=== PATIENT | female | born 1940 | race Two or more races ===

== ENCOUNTER 2017-03-03 07:42 | Outpatient (CLI) | payer OTHER ==
[~2017-03-03] VITALS: Ht 149.9 cm; Wt 59.0 kg
[~2017-03-03 07:42] MED LIST: OMEPRAZOLE20 MG PO; STOOL SOFTENER50 MG PO; SYNTHROID112 MCG PO
== END 2017-03-03 08:00 | disposition home or self-care (01) ==
LOC: OFIC 805 07:42
DX: K21.0 Gastro-esophageal reflux disease with esophagitis (principal)

== ENCOUNTER 2017-03-24 09:01 | Outpatient (CLI) | payer OTHER | END 2017-03-24 09:06 | disposition home or self-care (01) | LOC: SONOGRAMA 09:01 | DX: R12 Heartburn (principal); K30 Functional dyspepsia; K57.30 Diverticulosis of large intestine without perforation or abscess without bleeding; R14.2 Eructation; E03.8 Other specified hypothyroidism ==

== ENCOUNTER 2017-05-24 07:23 | Outpatient (CLI) | payer OTHER | END 2017-05-24 07:37 | disposition home or self-care (01) | LOC: MAMO-SONO 07:23 | DX: Z12.31 Encounter for screening mammogram for malignant neoplasm of breast (principal); Z87.898 Personal history of other specified conditions; N60.11 Diffuse cystic mastopathy of right breast; N60.12 Diffuse cystic mastopathy of left breast ==

== ENCOUNTER → 2017-06-07 | Outpatient (CLI) | payer OTHER | END | disposition home or self-care (01) | LOC: NUCLEAR 06-02 11:00 | DX: M81.0 Age-related osteoporosis without current pathological fracture (principal) ==

== ENCOUNTER 2017-12-29 07:45 | Outpatient (CLI) | payer OTHER | END 2017-12-29 07:51 | disposition home or self-care (01) | LOC: SONOGRAMA 07:45 | DX: E04.8 Other specified nontoxic goiter (principal) ==

== ENCOUNTER 2018-01-25 07:44 | Outpatient (CLI) | payer OTHER | END 2018-01-25 07:47 | disposition home or self-care (01) | LOC: SONOGRAMA 07:44 | DX: E04.1 Nontoxic single thyroid nodule (principal) ==

== ENCOUNTER 2018-01-30 08:03 | Outpatient (CLI) | payer OTHER | END 2018-01-30 08:06 | disposition home or self-care (01) | LOC: MAMO-SONO 08:03 | DX: Z12.31 Encounter for screening mammogram for malignant neoplasm of breast (principal); Z87.898 Personal history of other specified conditions; N60.01 Solitary cyst of right breast; N60.02 Solitary cyst of left breast ==

== ENCOUNTER 2018-03-26 12:12 | Outpatient (CLI) | payer OTHER ==
[~2018-03-26] VITALS: Ht 149.9 cm; Wt 57.6 kg
== END 2018-03-26 12:30 | disposition home or self-care (01) ==
LOC: OFIC 805 12:12
DX: J34.3 Hypertrophy of nasal turbinates (principal); J34.2 Deviated nasal septum

== ENCOUNTER 2018-04-26 08:31 | Outpatient (CLI) | payer OTHER | END 2018-04-26 08:44 | disposition home or self-care (01) | LOC: RAD 501 08:31 | DX: M25.511 Pain in right shoulder (principal) ==

== ENCOUNTER 2018-04-30 08:45 | Outpatient (CLI) | payer OTHER | END 2018-04-30 08:54 | disposition home or self-care (01) | LOC: SONOGRAMA 08:45 | DX: M25.511 Pain in right shoulder (principal) ==

== ENCOUNTER → 2018-05-14 | Emergency (ER) | payer OTHER ==
[~2018-05-14] VITALS: Ht 149.9 cm; Wt 59.0 kg
== END | disposition left against medical advice (07) ==
LOC: ER 00:09
DX: Z53.20 Procedure and treatment not carried out because of patient's decision for unspecified reasons (principal)

== ENCOUNTER 2018-11-06 17:45 | Emergency (ER) | payer OTHER ==
[~2018-11-06] VITALS: Ht 149.9 cm; Wt 59.0 kg
[2018-11-06] MEDS ORDERED: DEXILANT60 MG PO (17:52)
== END 2018-11-06 23:26 | disposition home or self-care (01) ==
LOC: ER 17:45
DX: K56.699 Other intestinal obstruction unspecified as to partial versus complete obstruction (principal); K80.80 Other cholelithiasis without obstruction; R10.31 Right lower quadrant pain

== ENCOUNTER 2019-02-18 10:11 | Outpatient (CLI) | payer OTHER ==
[~2019-02-18 10:11] MED LIST changes: +DEXILANT60 MG PO
== END 2019-02-21 15:16 | disposition home or self-care (01) ==
LOC: RAD 10:11
DX: R10.84 Generalized abdominal pain (principal)

== ENCOUNTER 2019-04-23 09:07 | Outpatient (CLI) | payer OTHER ==
[~2019-04-23] VITALS: Ht 121.9 cm; Wt 59.0 kg
== END 2019-04-23 11:23 | disposition home or self-care (01) ==
LOC: OFIC 805 09:07
DX: J34.2 Deviated nasal septum (principal); K21.0 Gastro-esophageal reflux disease with esophagitis; R07.0 Pain in throat

== ENCOUNTER 2019-04-28 15:41 | Emergency (ER) | payer OTHER ==
[~2019-04-28] VITALS: Ht 157.5 cm; Wt 62.6 kg
== END 2019-04-28 20:19 | disposition home or self-care (01) ==
LOC: ER 15:41
DX: S40.012A Contusion of left shoulder, initial encounter (principal); S50.02XA Contusion of left elbow, initial encounter; W01.198A Fall on same level from slipping, tripping and stumbling with subsequent striking against other object, initial encounter; Y93.01 Activity, walking, marching and hiking; Y92.59 Other trade areas as the place of occurrence of the external cause; Y99.8 Other external cause status

== ENCOUNTER 2019-04-30 08:03 | Outpatient (CLI) | payer OTHER | END 2019-04-30 08:15 | disposition home or self-care (01) | LOC: RAD 08:03 | DX: J44.9 Chronic obstructive pulmonary disease, unspecified (principal) ==

== ENCOUNTER 2020-12-17 13:04 | Outpatient (CLI) | payer OTHER | END 2020-12-17 13:13 | disposition home or self-care (01) | LOC: NUCLEAR 13:04 | PROVIDERS: ATTEND Obstetrics & Gynecology | DX: M81.0 Age-related osteoporosis without current pathological fracture (principal) ==

== ENCOUNTER 2020-12-22 08:29 | Outpatient (CLI) | payer OTHER | END 2020-12-22 08:42 | disposition home or self-care (01) | LOC: MAMO-SONO 08:29 | PROVIDERS: ATTEND Obstetrics & Gynecology | DX: N60.11 Diffuse cystic mastopathy of right breast (principal); N60.12 Diffuse cystic mastopathy of left breast; Z12.31 Encounter for screening mammogram for malignant neoplasm of breast ==

== ENCOUNTER 2021-10-02 09:26 | Emergency (ER) | payer OTHER ==
[~2021-10-02] VITALS: Ht 149.9 cm; Wt 60.3 kg
== END 2021-10-02 13:26 ==
LOC: ER 09:26
DX: J06.9 Acute upper respiratory infection, unspecified (principal); R05.9 Cough, unspecified; D64.9 Anemia, unspecified; Z20.822 Contact with and (suspected) exposure to COVID-19

== ENCOUNTER 2022-05-07 08:14 | Emergency (ER) | payer OTHER ==
[~2022-05-07] VITALS: Ht 121.9 cm; Wt 60.8 kg
== END 2022-05-07 12:23 ==
LOC: ER 08:14
DX: J00 Acute nasopharyngitis [common cold] (principal); D64.9 Anemia, unspecified; E03.9 Hypothyroidism, unspecified

== ENCOUNTER 2022-07-07 08:45 | Emergency (ER) | payer OTHER ==
[~2022-07-07] VITALS: Ht 144.8 cm; Wt 61.2 kg
== END 2022-07-07 12:34 | disposition home or self-care (01) ==
LOC: ER 08:45
DX: K21.00 Gastro-esophageal reflux disease with esophagitis, without bleeding (principal); I10 Essential (primary) hypertension; K57.32 Diverticulitis of large intestine without perforation or abscess without bleeding; K57.30 Diverticulosis of large intestine without perforation or abscess without bleeding; K80.20 Calculus of gallbladder without cholecystitis without obstruction

== ENCOUNTER 2023-04-25 10:59 | Inpatient (IN) | payer OTHER ==
[~2023-04-25] VITALS: Ht 144.8 cm; Wt 63.5 kg
[2023-04-25 12:47] LABS: PLATELET COUNT 272 K/uL (150-450); RED BLOOD COUNT 2.79 M/uL (4.00-6.00)
[2023-04-25 12:49] LABS: HEMATOCRIT 18.1 % (36.0-45.00); MEAN CELL VOLUME 64.8 fL (80.00-100.00)
[2023-04-25 12:50] LABS: HEMOGLOBIN 5.6 g/dL (12.0-15.00)
[2023-04-25 13:00] LABS: RED CELL DISTRIBUTION WIDTH 20.6 % (11.5-14.5)
[2023-04-25 17:36] LABS: CALCIUM 9.1 mg/dL (8.5-10.1); CREATININE SERUM 0.73 mg/dL (0.55-1.02); GFR 76.32; POTASSIUM 4.39 mEq/L (3.5-5.1)
[2023-04-25] MEDS ORDERED: ONDANSETRON HCL 4 MG in DEXTROSE 5 % IN WATER 50 ML IV PRN (19:00)
[2023-04-25] MEDS ORDERED: ACETAMINOPHEN 500 MG GEL..CAP PO PRN (19:00)
[2023-04-25] MEDS ORDERED: FUROsemide 20 MG/2 ML VIAL IV PRN (20:45)
[2023-04-25] MEDS ORDERED: PANTOPRAZOLE SODIUM 40 MG/VIAL VIAL IV SCH (21:00)
[2023-04-26 08:49] LABS: HEMATOCRIT 25.8 % (36.0-45.00); MEAN CORPUSCULAR HGB CONC 33.4 g/dl (32.0-36.0); PLATELET COUNT 221 K/uL (150-450); RED BLOOD COUNT 3.71 M/uL (4.00-6.00); RED CELL DISTRIBUTION WIDTH 22.5 % (11.5-14.5)
[2023-04-26 09:00] LABS: MEAN CELL VOLUME 69.5 fL (80.00-100.00); MEAN CORPUSCULAR HEMOGLOBIN 23.1 pg (27.00-32.0)
[2023-04-26 09:01] LABS: HEMOGLOBIN 8.6 g/dL (12.0-15.00)
[2023-04-26 09:04] LABS: INR 0.99; PARTIAL THROMBOPLASTIN TIME 21.1 SECONDS (22.0-34.0); PROTHROMBIN TIME 10.4 SECONDS (9.0-11.5)
[2023-04-26 12:50] LABS: PH,URINE 6.5 (5.0-8.0); URINE APPEARANCE Clear; URINE BILIRRUBIN Negative (NEGATIVE); URINE BLOOD Negative; URINE COLOR Yellow; URINE GLUCOSE Negative (NEGATIVE); URINE LEUKOCYTE Negative; URINE NITRATE Negative; URINE PROTEIN Negative (NEGATIVE); URINE UROBILINOGEN 0.2 E.U./dl
[2023-04-26 12:55] LABS: URINE EPITHELIAL CELLS 0.7 uL (0.0-38.8); URINE RBC 0.7 uL (0.0-20.8); URINE WBC 0.6 uL (0.0-23.2)
[2023-04-26 18:28] LABS: HEMATOCRIT 34.1 % (36.0-45.00); HEMOGLOBIN 11.1 g/dL (12.0-15.00); MEAN CELL VOLUME 72.6 fL (80.00-100.00); MEAN CORPUSCULAR HEMOGLOBIN 23.7 pg (27.00-32.0); MEAN CORPUSCULAR HGB CONC 32.6 g/dl (32.0-36.0); PLATELET COUNT 221 K/uL (150-450); RED BLOOD COUNT 4.69 M/uL (4.00-6.00); RED CELL DISTRIBUTION WIDTH 22.5 % (11.5-14.5)
[2023-04-27 07:04] LABS: HEMATOCRIT 33.6 % (36.0-45.00); MEAN CELL VOLUME 72.3 fL (80.00-100.00); MEAN CORPUSCULAR HEMOGLOBIN 23.6 pg (27.00-32.0); MEAN CORPUSCULAR HGB CONC 32.6 g/dl (32.0-36.0); PLATELET COUNT 226 K/uL (150-450); RED BLOOD COUNT 4.65 M/uL (4.00-6.00); RED CELL DISTRIBUTION WIDTH 22.6 % (11.5-14.5)
[2023-04-27] MEDS ORDERED: NA PHOS,M-B/NA PHOS,DI-BA 1 BOTTLE ENEMA RECTAL STA (12:18)
[2023-04-27] MEDS ORDERED: LACTULOSE 20 G/30 ML BLIST.PACK PO ONE (16:15)
[2023-04-27] MEDS ORDERED: MAGNESIUM HYDROXIDE 30 ML BLIST.PACK PO ONE (16:15)
[2023-04-27] MEDS ORDERED: MINERAL OIL 30 ML BLIST.PACK PO ONE (16:15)
== END 2023-04-28 11:14 | disposition home or self-care (01) | DRG 377 ==
LOC: ER 10:59 → MEDJ 19:51
PROVIDERS: General Practice; Internal Medicine; ADMIT Internal Medicine; ATTEND Internal Medicine
PROC: 30233N1 Transfusion of Nonautologous Red Blood Cells into Peripheral Vein, Percutaneous Approach (ICD-10-PCS; principal; 2023-04-25)
DX: K92.2 Gastrointestinal hemorrhage, unspecified (principal); U07.1 COVID-19; D64.89 Other specified anemias; E03.9 Hypothyroidism, unspecified; K59.09 Other constipation; I50.9 Heart failure, unspecified; K92.1 Melena

== ENCOUNTER 2024-11-03 20:00 | Emergency (ER) | payer OTHER ==
[~2024-11-03] VITALS: Ht 149.9 cm; Wt 63.5 kg
[2024-11-03] MEDS ORDERED: KETOROLAC TROMETHAMINE 60 MG VIAL IM ONE (22:00)
[2024-11-03] MEDS ORDERED: DEXAMETHASONE SODIUM PHOSPHATE 4 MG/ML VIAL IM ONE (22:00)
[2024-11-03] MEDS ORDERED: ORPHENADRINE CITRATE 30 MG/ML AMPUL IM ONE (22:00)
[2024-11-03] MEDS ORDERED: PEPCID AC20 MG PO (22:19)
[2024-11-03] MEDS ORDERED: ZOFRAN8 MG PO (22:19)
[2024-11-03] MEDS ORDERED: INTESTINEX680 M1 PO (22:19)
[2024-11-03] MEDS ORDERED: 0.9 % SODIUM CHLORIDE 500 ML IV ONE (22:30)
[2024-11-03] MEDS ORDERED: SUCRALFATE 1 G TABLET PO ONE (22:30)
[2024-11-03] MEDS ORDERED: ONDANSETRON HCL 2 MG/ML VIAL IV ONE (22:30)
[2024-11-03] MEDS ORDERED: FAMOtidine 10 MG/ML (4ML VIAL) IV ONE (22:30)
== END 2024-11-03 22:30 | disposition home or self-care (01) ==
LOC: ER 20:00
DX: R10.13 Epigastric pain (principal); R19.7 Diarrhea, unspecified
CPT/HCPCS: 96365; 99282; J2405; J3490; J7042

== ENCOUNTER 2024-11-25 07:48 | Inpatient (IN) | payer OTHER ==
[~2024-11-25] VITALS: Ht 152.4 cm; Wt 59.0 kg
[2024-11-25] VITALS: BP 149/60; O2SAT 99
[~2024-11-25 07:48] MED LIST changes: +INTESTINEX680 M1 PO; +PEPCID AC20 MG PO; +ZOFRAN8 MG PO
[2024-11-25] MEDS ORDERED: DONEPEZIL HCL5 MG PO (08:48)
[2024-11-25] MEDS ORDERED: 0.9 % SODIUM CHLORIDE 1,000 ML IV SCH ×2 (09:30→15:30)
[2024-11-25] MEDS ORDERED: FAMOTIDINE/PF 20 MG/2 ML VIAL IV ONE (09:30)
[2024-11-25 10:03] LABS: BASO % 0.4 % (0.1-1.2); EOS # 0.05 (0.04-0.54); EOS % 0.4 % (0.7-7.0); LYMPH # 1.68 (1.18-3.74); LYMPH % 13.5 % (19.3-53.1); MEAN PLATELET VOLUME 10.40 fl (9.4-12.4); MONO # 0.81 (0.24-0.82); MONO % 6.5 % (4.7-12.5); NEUT # 9.77 (1.56-6.13); NEUT % 78.8 % (34.0-71.1); RED CELL DISTRIBUTION WIDTH 20.8 % (11.6-14.4)
[2024-11-25] MEDS ORDERED: FAMOTIDINE/PF 20 MG/2 ML VIAL ONE (10:08)
[2024-11-25 10:30] LABS: ALT/SGPT 14.0 U/L (12-78); AST/SGOT 13.0 U/L (15-37); BILIRUBIN TOTAL 0.35 mg/dL (0.3-1.2); BUN CREA RATIO 25.0 (7.0-25.0); CREATININE SERUM 0.71 mg/dL (0.55-1.02); GFR 78.62; GLOBULINA 4.1 G/DL (2.4-3.5); GLUCOSE FASTING 115.0 mg/dL (65-100); OSMOLALITY SERUM 278.0 MOSM/KG (275-295)
[2024-11-25] MEDS ORDERED: PANTOPRAZOLE SODIUM 40 MG/VIAL VIAL IV ONE (12:30)
[2024-11-25] MEDS ORDERED: PANTOPRAZOLE SODIUM 80 MG in 0.9 % SODIUM CHLORIDE 100 ML IV SCH (15:30)
[2024-11-25] MEDS ORDERED: ONDANSETRON HCL 4 MG in 0.9 % SODIUM CHLORIDE 50 ML IV PRN (15:30)
[2024-11-25] MEDS ORDERED: CEFTRIAXONE SODIUM 2,000 MG in 0.9 % SODIUM CHLORIDE 100 ML IV SCH (15:32)
[2024-11-25] MEDS ORDERED: CEFTRIAXONE SODIUM 2,000 MG VIAL ONE (16:27)
[2024-11-25 17:00] VITALS: BP 122/56; O2SAT 98
[2024-11-25 17:21] LABS: INR 1.06
[2024-11-25 19:37] LABS: URINE APPEARANCE Clear; URINE BILIRRUBIN Negative (NEGATIVE); URINE BLOOD Negative; URINE COLOR Yellow; URINE GLUCOSE Negative (NEGATIVE); URINE KETONE 15 (NEGATIVE); URINE LEUKOCYTE Trace; URINE NITRATE Negative; URINE PROTEIN Trace (NEGATIVE); URINE UROBILINOGEN 0.2 E.U./dl
[2024-11-25 19:41] LABS: URINE BACTERIA 285.3 uL (0.0-1933); URINE EPITHELIAL CELLS 12.6 uL (0.0-38.8); URINE RBC 11.7 uL (0.0-20.8); URINE WBC 120.1 uL (0.0-23.2)
[2024-11-25 19:49] LABS: URINE CAST 0.00 uL (0.0-1.40)
[2024-11-26 04:40] VITALS: BP 122/75; O2SAT 100
[2024-11-26] MEDS ORDERED: LEVOTHYROXINE SODIUM 112 MCG TABLET PO SCH (06:00)
[2024-11-26 09:13] VITALS: BP 126/72; O2SAT 100
[2024-11-26] MEDS ORDERED: DIPHENHYDRAMINE HCL 50 MG/ML VIAL 1ML ONE (09:59)
[2024-11-26] MEDS ORDERED: DIPHENHYDRAMINE HCL 50 MG/ML VIAL 1ML IM ONE (10:30)
[2024-11-26 17:23] VITALS: BP 177/68
[2024-11-27 02:59] VITALS: BP 139/66; O2SAT 99
[2024-11-27 08:25] VITALS: BP 147/78; O2SAT 98
[2024-11-27 16:39] VITALS: BP 149/68
== END 2024-11-27 16:53 | disposition left against medical advice (07) | DRG 812 ==
LOC: ER 07:48 → SEC-K 15:32 → MEDI 11-26 01:23
PROVIDERS: Emergency Medicine; General Practice; ADMIT Internal Medicine; ATTEND Internal Medicine
PROC: BW21YZZ Computerized Tomography (CT Scan) of Abdomen and Pelvis using Other Contrast (ICD-10-PCS; principal; 2024-11-25)
PROC: BW21ZZZ Computerized Tomography (CT Scan) of Abdomen and Pelvis (ICD-10-PCS; 2024-11-25)
PROC: 30233N1 Transfusion of Nonautologous Red Blood Cells into Peripheral Vein, Percutaneous Approach (ICD-10-PCS; 2024-11-26)
DX: D64.9 Anemia, unspecified (principal); K92.2 Gastrointestinal hemorrhage, unspecified; F02.811 Dementia in other diseases classified elsewhere, unspecified severity, with agitation; Z79.1 Long term (current) use of non-steroidal anti-inflammatories (NSAID); G30.9 Alzheimer's disease, unspecified; Z53.29 Procedure and treatment not carried out because of patient's decision for other reasons